=== PATIENT | male | born 1975 | race Caucasian/White ===

== ENCOUNTER 2017-11-29 20:30 | Emergency (ER) | payer OTHER ==
[~2017-11-29] VITALS: Ht 175.3 cm; Wt 68.0 kg
[2017-11-29] MEDS ORDERED: ONDANSETRON HCL/PF 4 MG/2 ML VIAL IVP ONE (21:00)
[2017-11-29] MEDS ORDERED: MORPHINE SULFATE INJ 2 MG/ML DISP.SYRIN IV ONE (21:00)
[2017-11-29 21:09] LABS: BASOPHILS # (AUTO) 0.2 /CMM (0.0-0.2); BASOPHILS % (AUTO) 2.4 % (0.0-2.0); EOSINOPHILS # (AUTO) 0.1 /CMM (0.0-0.7); EOSINOPHILS % (AUTO) 1.2 % (0.0-6.0); HEMATOCRIT 46 % (39-51); HEMOGLOBIN 15.6 g/dL (13.5-17.5); LYMPHOCYTES # (AUTO) 1.5 /CMM (0.8-4.8); LYMPHOCYTES % (AUTO) 15.3 % (20.0-44.0); MEAN CORPUSCULAR HEMOGLOBIN 30 PG (26.0-33.0); MEAN CORPUSCULAR HGB CONC 34 g/dl (31.0-36.0); MEAN CORPUSCULAR VOLUME 88 fL (80-96); MONOCYTES # (AUTO) 0.8 /CMM (0.1-1.30); MONOCYTES % (AUTO) 8.8 % (2.0-12.0); NEUTROPHILS # (AUTO) 6.9 /CMM (1.8-8.9); NEUTROPHILS % (AUTO) 72.3 % (43.0-81.0); PLATELET COUNT (AUTO) 188 /CMM (150-450); RDW COEFFICIENT OF VARIATION 11.7 (11.5-15.0); RED BLOOD CELL COUNT(AUTO) 5.21 MIL/uL (4.5-6.0); WHITE BLOOD COUNT (AUTO) 9.5 K/uL (4.3-11.0)
[2017-11-29 21:24] LABS: INR 0.89 (0.85-1.15)
[2017-11-29 21:33] LABS: CALCIUM, SERUM 9.3 mg/dL (8.5-10.1); CARBON DIOXIDE 31 mmol/L (21-32); CHLORIDE 101 mmol/L (98-107); GLUCOSE 110 mg/dL (74-106); POTASSIUM 4.4 mmol/L (3.5-5.1); SODIUM SERUM 138 mmol/L (136-145); UREA NITROGEN, BLOOD 14 mg/dL (7-18)
[2017-11-29 21:39] LABS: CHOLESTEROL 178 mg/dL (<200); HDL CHOLESTEROL 68 mg/dL (40-60); LDL 101 mg/dL (0-99); TRIGLYCERIDES 128 mg/dL (30-150)
[2017-11-29 21:40] LABS: TROPONIN I < 0.017 ng/mL (0.00-0.056)
[2017-11-29] MEDS ORDERED: IOHEXOL-350 100 ML VIAL IV ONE (21:40)
[2017-11-29] MEDS ORDERED: IV NS 0.9% 250 ML IV ONE (21:41)
--- NOTE | 2017-11-29 21:41 | NUR ---
42 Y/O MALE PLACED IN BED 3 C/O LEFT EYE PAIN. PT SEEN BY . H/L PLACED RIGHT A/C FOR CTA. BLOOD DRAWN AND SENT
[2017-11-29] MEDS ORDERED: MORPHINE SULFATE INJ 4 MG/ML DISP.SYRIN ONE ×2 (21:44→21:47)
[2017-11-29] MEDS ORDERED: ONDANSETRON HCL/PF 4 MG/2 ML VIAL ONE (21:49)
--- NOTE | 2017-11-29 21:49 | NUR ---
PT TRANSPORTED TO RADIOLOGY FOR CT'S.
--- NOTE | 2017-11-29 21:51 | NUR ---
PT TAKEN TO CT
[2017-11-29 21:52] LABS: ALANINE AMINOTRANSFERASE 23 U/L (12-78); ALBUMIN 4.1 g/dL (3.4-5.0); ALKALINE PHOSPHATASE 73 U/L (46-116); ASPARTATE AMINOTRANSFERASE 14 U/L (15-37); BILIRUBIN,DIRECT 0.1 mg/dL (0.0-0.2); BILIRUBIN,TOTAL 0.2 mg/dL (0.2-1.0); TOTAL PROTEIN, SERUM 7.6 g/dL (6.4-8.2)
--- NOTE | 2017-11-29 22:21 | NUR ---
PT BACK FROM CT. MEDICATIONS GIVEN. PT RESTING COMFORTABLY.
--- NOTE | 2017-11-29 22:30 | NUR ---
KATALINA SAUL SPOKE TO DR. BESS REGARDING PT.
--- NOTE | 2017-11-29 22:34 | NUR ---
SPOKE WITH SOFY AT [facility], I FAXED HER FACESHEET AND H&P AT
--- NOTE | 2017-11-29 22:41 | NUR ---
SOFY FROM [facility] PATIENT ACCEPTED AT [facility], PATIENT WILL GO TO ROOM 4404 RN TO RN REPORT CAN BE GIVEN AT , PRESS [facility] #1 AND DIAL EXTENSION [id number] [place]
--- NOTE | 2017-11-29 22:49 | NUR ---
REQUESTED ALS TRANSPORTATION VIA [employer] [facility] GOING TO [facility] ROOM 9246
[2017-11-29] MEDS ORDERED: DEXAMETHASONE SOD PHOSPHATE 10 MG/ML VIAL ONE (22:59)
[2017-11-29] MEDS ORDERED: DEXAMETHASONE SOD PHOSPHATE 10 MG/ML VIAL IV ONE (23:00)
[2017-11-29] MEDS ORDERED: LEVETIRACETAM (500MG) 500 MG/5 ML VIAL IV ONE (23:00)
[2017-11-29] MEDS ORDERED: LEVETIRACETAM (500MG) 500 MG in IV NS 0.9% 100 ML IV SCH (23:00)
--- NOTE | 2017-11-29 23:00 | NUR ---
ETA FOR [facility] ALS TRANSPORTATION IS 30-45 MIN
[2017-11-29 23:45] VITALS: BP 132/84
--- NOTE | 2017-11-29 23:48 | NUR ---
AMBULANCE ARRIVEWS AND PT TRANSPORTED TO [facility]. REPORT GIVEN TO [facility] NURSE FREDA.
== END 2017-11-30 00:49 | disposition short-term general hospital (02) ==
LOC: ER 20:41
DX: G93.40 Encephalopathy, unspecified (principal); G93.6 Cerebral edema; I10 Essential (primary) hypertension; Z88.8 Allergy status to other drugs, medicaments and biological substances
CPT/HCPCS: 36415; 70450-TC; 70496-TC; 70498-TC; 71045-TC; 80048-TC; 80061-TC; 80076-TC; 84484-TC; 85025-TC; 85730-TC; A4606; J1100; J1953; J2270; J2405; J7030; J7050; Q9967; Z7610

== ENCOUNTER 2017-12-25 14:21 | Emergency (ER) | payer OTHER ==
[~2017-12-25] VITALS: Ht 165.1 cm; Wt 67.8 kg
[2017-12-25] MEDS: IV NS 0.9% 1,000 ML BAG IV ONE ×2 (14:37→16:00)
--- NOTE | 2017-12-25 14:38 | NUR ---
BIB FAMILY DT EPISODE OF CONFUSION AND LEFT SIDE FACE/ HEAD SWELLING. PATIENT IN ON 5 DAYS SP CRANIOTOMY FOR REMOVAL OF MASS. SX WAS DONE AT [facility]. PATIENT RECEIVED AWAKE AND ALERT. STILL NOTED WITH SWELLING- LEFT SIDE OF FACE/HEAD ALSO NOTED WITH SUTURE. NO SIGNS OF INFECTION NOTED ON SITE. CONNECTED PT TO TELE MONITOR. MD ESTEVES AT BEDSIDE.
--- NOTE | 2017-12-25 14:42 | NUR ---
PATIENT WAS TAKEN TO CT
[2017-12-25 14:46] LABS: BASOPHILS # (AUTO) 0.1 /CMM (0.0-0.2); BASOPHILS % (AUTO) 0.4 % (0.0-2.0); HEMATOCRIT 39 % (39-51); HEMOGLOBIN 13.2 g/dL (13.5-17.5); LYMPHOCYTES # (AUTO) 0.6 /CMM (0.8-4.8); LYMPHOCYTES % (AUTO) 2.5 % (20.0-44.0); MEAN CORPUSCULAR HEMOGLOBIN 30 PG (26.0-33.0); MEAN CORPUSCULAR HGB CONC 34 g/dl (31.0-36.0); MEAN CORPUSCULAR VOLUME 90 fL (80-96); MONOCYTES # (AUTO) 1.9 /CMM (0.1-1.30); MONOCYTES % (AUTO) 8.4 % (2.0-12.0); NEUTROPHILS # (AUTO) 20.4 /CMM (1.8-8.9); NEUTROPHILS % (AUTO) 88.7 % (43.0-81.0); PLATELET COUNT (AUTO) 184 /CMM (150-450); RED BLOOD CELL COUNT(AUTO) 4.34 MIL/uL (4.5-6.0)
[2017-12-25 15:09] LABS: INR 0.94 (0.87-1.13)
[2017-12-25 15:12] LABS: CALCIUM, SERUM 9.4 mg/dL (8.5-10.1); CARBON DIOXIDE 28 mmol/L (21-32); CHLORIDE 97 mmol/L (98-107); CREATININE 1.1 mg/dL (0.6-1.3); GLUCOSE 131 mg/dL (74-106); POTASSIUM 4.2 mmol/L (3.5-5.1); SODIUM SERUM 137 mmol/L (136-145); UREA NITROGEN, BLOOD 24 mg/dL (7-18)
[2017-12-25 15:14] LABS: TROPONIN I < 0.017 ng/mL (0.00-0.056)
[2017-12-25 15:23] LABS: ALANINE AMINOTRANSFERASE 70 U/L (12-78); ALBUMIN 3.5 g/dL (3.4-5.0); ALKALINE PHOSPHATASE 53 U/L (46-116); ASPARTATE AMINOTRANSFERASE 15 U/L (15-37); BILIRUBIN,DIRECT 0.2 mg/dL (0.0-0.2); BILIRUBIN,TOTAL 0.8 mg/dL (0.2-1.0)
[2017-12-25] MEDS ORDERED: DEXAMETHASONE SOD PHOSPHATE 10 MG/ML VIAL ONE (15:32)
[2017-12-25] MEDS: DEXAMETHASONE SOD PHOSPHATE 10 MG/ML VIAL IV ONE (15:35)
[2017-12-25 15:37] LABS: BAND % (MANUAL) 5 % (0.0-5.0); LYMPHOCYTES % (MANUAL) 2 % (16-48); MONOCYTES % (MANUAL) 8 % (0-11.0); NEUTROPHILS % (MANUAL) 85 (42-76)
[2017-12-25] MEDS ORDERED: MAGN400O6 PO (15:55)
[2017-12-25] MEDS ORDERED: ALPR0.5T PO (15:55)
[2017-12-25] MEDS ORDERED: LEVE250T2 PO (15:55)
[2017-12-25] MEDS ORDERED: ESCI10TA PO (15:55)
[2017-12-25] MEDS ORDERED: DOCU-141 PO (15:55)
[2017-12-25] MEDS ORDERED: HYDR-548 PO (15:55)
[2017-12-25] MEDS ORDERED: ACET-2605 PO (15:55)
[2017-12-25] MEDS: IV NS 0.9% 500 ML BAG IV ONE (16:00)
[2017-12-25] MEDS: CEFEPIME 1 GM in IV D5W 50 ML IV ONE (16:00)
[2017-12-25] MEDS ORDERED: DEXA4TAB PO (16:05)
--- NOTE | 2017-12-25 16:13 | NUR ---
PAGED EPIC FOR PANEL
--- NOTE | 2017-12-25 16:16 | NUR ---
CALLED NURSE SUP FOR TELE BED
[2017-12-25] MEDS: VANCOMYCIN 1 GM in IV D5W 250 ML IV ONE (16:19)
--- NOTE | 2017-12-25 16:57 | NUR ---
REPORT GIVEN TO JOANN BAHENA FOR CONTINUITY OF CARE.
--- NOTE | 2017-12-25 16:57 | NUR ---
ABOUT A LITER OF NS STILL ONGOING. RECEIVING RN MADE AWARE AND WILL DO REASSESSMENT.
--- NOTE | 2017-12-25 17:32 | NUR ---
PATIENT UNABLE TO GIVE URINE SAMPLE. STRONGLY REFUSE IN AND OUT CATHETER,
--- NOTE | 2017-12-25 17:48 | NUR ---
RAEGAN 108
--- NOTE | 2017-12-25 17:57 | NUR ---
POSSIBLE TRANSFER TO [facility]
--- NOTE | 2017-12-25 18:19 | NUR ---
Omar arias in [facility] - 12/25/17 at 1825 by SCOTTY Patient discharged to home in stable condition. Written and verbal after care instructions given. Patient verbalizes understanding of instruction.
--- NOTE | 2017-12-25 18:43 | NUR ---
Patient is resting comfortably in bed with eyes closed. Easily aroused. VSS
--- NOTE | 2017-12-25 19:03 | NUR ---
REPORT RECEIVED FROM JOANN TAYLOR FOR GOLD.
[2017-12-25 19:11] LABS: APPEARANCE,URINE CLEAR (CLEAR); BILIRUBIN,URINE NEGATIVE (NEGATIVE); BLOOD, URINE NEGATIVE Ery/uL (NEGATIVE); COLOR,URINE DARK YELLO (YELLOW); KETONES,URINE NEGATIVE (NEGATIVE); LEUKOCYTE ESTERASE ,URINE NEGATIVE (NEGATIVE); NITRITE, URINE NEGATIVE (NEGATIVE); PH,URINE 6.5 (5.0-8.0); PROTEIN,URINE TRACE mg/dl (NEGATIVE); UGLUCOSE NEGATIVE (NEGATIVE); UROBILINOGEN,URINE 0.2 EU/dL (0.2)
[2017-12-25 19:17] LABS: BACTERIA,URINE None seen /HPF (None Seen); RBC,URINE 0-2 /HPF (0-2); SQUAMOUS EPITHELIAL CELL,UR Few /HPF (None Seen); WBC,URINE 0-2 /HPF (0-3)
[2017-12-25 20:06] VITALS: BP 134/80
--- NOTE | 2017-12-25 20:06 | NUR ---
PT RESTING QUIETLY, AROUSES EASILY TO VOICE. VSS.
--- NOTE | 2017-12-25 20:14 | NUR ---
FAXED PAPERWORK TO BOTH [phone] AND [phone] AND [facility] HAS NOT RECEIVED PAPERWORK - ALEJANDRO AT [facility] STATED THAT THEY ARE EXPERIENCING TROUBLE WITH THEIR FAX MACHINES AND ARE IN DOWNTIME WITH EXPECTING TIME FRAME OF BEING BACK UP AT 0800 - REQUESTED THAT WE HOLD PATIENT UNTIL THEY ARE BACK UP AND ARE ABLE TO PROCESS PAPERWORK TO COMPLETE TRANSFER
--- NOTE | 2017-12-25 21:27 | NUR ---
Patient does not wish to proceed with medical care recommended by . Patient given information related to possible complications, up to and including , which could occur as a result of leaving the hospital at this time. Patient verbalizes understanding of risks involved due to leaving against medical advice. Patient has signed AMA form.IV removed. Catheter intact and site benign. Pressure and 4x4 applied to site. No bleeding noted.
== END 2017-12-25 21:29 | disposition left against medical advice (07) ==
LOC: ER 14:23 → UNDOADMIN 16:52 → TELE 16:52 → ER 18:21
DX: G93.40 Encephalopathy, unspecified (principal); C79.31 Secondary malignant neoplasm of brain; E87.2 Acidosis; I10 Essential (primary) hypertension; D72.829 Elevated white blood cell count, unspecified; Z88.8 Allergy status to other drugs, medicaments and biological substances; Z98.890 Other specified postprocedural states
CPT/HCPCS: 36415; 70450-TC; 71045-TC; 80048-TC; 80076-TC; 81000-TC; 83605-TC; 84484-TC; 85025-TC; 85730-TC; 86850-TC; 87040-TC; 87081-TC; 87086-TC; A4606; J0692; J1100; J3370; J7030; J7040; J7060; Z7610